=== PATIENT | female | born 1985 | race American Indian/Alaskan Native ===

== ENCOUNTER 2021-11-16 15:19 | Emergency (ER) | payer SELFPAY ==
[2021-11-16 17:56] VITALS: BP 111/73
[2021-11-16] MEDS ORDERED: predniSONE 20 MG TAB PO ONE (21:26)
[2021-11-16] MEDS ORDERED: FAMOTIDINE 20 MG TAB PO ONE (21:26)
[2021-11-16] MEDS ORDERED: diphenhydrAMINE 25 MG CAP PO ONE (21:26)
--- NOTE | 2021-11-16 21:52 | Emergency Department Report ---
ED General Adult HPI - General Chief complaint: Allergic Reaction Stated complaint: ALERGIC REACTION Time Seen by Provider: 11/16/21 21:26 Source: patient Mode of arrival: Ambulatory Limitations: No Limitations - History of Present Illness Initial comments: Patient 36-year-old -Citizen Of [place] female with history of seasonal allergies, no Hodgkin's lymphoma states cancer is in remission. Patient states allergic reaction for the past 3 days itchy runny eyes, there is no shortness of breath there is no nausea no vomiting no dizziness no chest pain no shortness of breath no wheezing or stridor. Patient tolerating p.o. intake. States he came to ED to get prescription medications. Patient denies other symptoms patient appears alert oriented x3 patient appears nontoxic and with no acute distress at this time. Signs are noted stable. There is no rash no hives. Severity scale (0 -10): 0 - Related Data Previous Rx's Medication Instructions Recorded Last Taken Type Famotidine [Pepcid] 20 mg PO BID 7 Days #14 tablet 11/16/21 Unknown Rx Prednisone [predniSONE 10 mg 10 mg PO .TAPER #1 11/16/21 Unknown Rx (6-Day Pack, 21 Tabs)] diphenhydrAMINE [Benadryl CAP] 25 mg PO Q8HR PRN 7 Days #21 11/16/21 Unknown Rx capsule Allergies Allergy/AdvReac Type Severity Reaction Status Date / Time Penicillins Allergy Unknown Verified 11/16/21 21:22 ED Review of Systems ROS: Stated complaint: ALERGIC REACTION Other details as noted in HPI Constitutional: denies: chills, fever Eyes: denies: eye pain, eye discharge, vision change ENT: denies: ear pain, throat pain Respiratory: denies: cough, shortness of breath, wheezing Cardiovascular: denies: chest pain, palpitations Endocrine: no symptoms reported Gastrointestinal: as per HPI. denies: abdominal pain, nausea, vomiting Genitourinary: denies: urgency, dysuria, discharge Musculoskeletal: denies: back pain, joint swelling, arthralgia Skin: pruritus Neurological: denies: headache, weakness, numbness, paresthesias, confusion, vertigo Psychiatric: denies: anxiety, depression Hematological/Lymphatic: denies: easy bleeding, easy bruising ED Past Medical Hx - Past Medical History Previous Medical History?: Yes Hx of Cancer: Yes Additional medical history: lymphoma - Medications Home Medications: Home Medications Medication Instructions Recorded Confirmed Last Taken Type Famotidine [Pepcid] 20 mg PO BID 7 Days #14 tablet 11/16/21 Unknown Rx Prednisone [predniSONE 10 mg 10 mg PO .TAPER #1 11/16/21 Unknown Rx (6-Day Pack, 21 Tabs)] diphenhydrAMINE [Benadryl CAP] 25 mg PO Q8HR PRN 7 Days #21 11/16/21 Unknown Rx capsule ED Physical Exam - General Limitations: No Limitations General appearance: alert, in no apparent distress - Head Head exam: Present: atraumatic, normocephalic - Eye Eye exam: Present: normal appearance, PERRL, EOMI Pupils: Present: normal accommodation - ENT ENT exam: Present: normal orophraynx, mucous membranes dry, mucous membranes moist, TM's normal bilaterally, normal external ear exam - Neck Neck exam: Present: normal inspection, full ROM. Absent: tenderness, lymphadenopathy - Respiratory Respiratory exam: Present: normal lung sounds bilaterally. Absent: respiratory distress, wheezes, stridor - Cardiovascular Cardiovascular Exam: Present: regular rate, normal rhythm, normal heart sounds. Absent: systolic murmur, diastolic murmur, rubs, gallop - GI/Abdominal GI/Abdominal exam: Present: soft. Absent: distended, tenderness - Rectal Rectal exam: Present: deferred - Extremities Exam Extremities exam: Present: normal inspection, full ROM, normal capillary refill. Absent: tenderness - Back Exam Back exam: Present: normal inspection, full ROM. Absent: CVA tenderness (R), CVA tenderness (L) - Neurological Exam Neurological exam: Present: alert, oriented X3 - Psychiatric Psychiatric exam: Present: normal affect, normal mood - Skin Skin exam: Present: warm, dry, intact, normal color, urticaria. Absent: rash, cyanosis, diaphoretic, erythema, petechiae, pallor, ecchymosis ED Course Vital Signs 11/16/21 17:49 Temperature 98.2 F Pulse Rate 99 H Respiratory 16 Rate Blood Pressure 111/73 [Left] O2 Sat by Pulse 100 Oximetry ED Medical Decision Making - Medical Decision Making Patient rates symptoms as mild, airways patent no lesions no exudate no stridor lungs are clear throughout, there is no raised rash no hives, patient advises initial lip swelling is relieved. Patient is tolerating p.o. intake there is no dizziness no lightheadedness no nausea no vomiting no chest pain or shortness of breath plan DC to home, short burst steroids, Benadryl Pepcid, follow-up with primary care doctor in 2 to 3 days return to emergency department immediately should symptoms worsen. Patient verbalized agreement and understanding with discharge plan. Patient DC'd home in stable condition at this time. Critical care attestation.: If time is entered above; I have spent that time in minutes in the direct care of this critically ill patient, excluding procedure time. ED Disposition Clinical Impression: Allergic reaction Qualifiers: Encounter type: initial encounter Qualified Code(s): T78.40XA - Allergy, unspecified, initial encounter Allergies Qualifiers: Encounter type: initial encounter Qualified Code(s): T78.40XA - Allergy, unspecified, initial encounter Disposition: HOME / SELF CARE / HOMELESS Is pt being admited?: No Does the pt Need Aspirin: No Condition: Stable Instructions: Allergies, Adult, [id number], Allergies, Adult Additional Instructions: Medication as prescribed, follow-up with your doctor in 2 to 3 days. Return to emergency immediately should symptoms worsen or shortness of breath. Prescriptions: diphenhydrAMINE [Benadryl CAP] 25 mg PO Q8HR PRN 7 Days #21 capsule PRN Reason: allergies Famotidine [Pepcid] 20 mg PO BID 7 Days #14 tablet Prednisone [predniSONE 10 mg (6-Day Pack, 21 Tabs)] 10 mg PO .TAPER #1 Referrals: RUTH DONALD MD [Staff Physician] - 3-5 Days Forms: Work/School Release Form(ED) Time of Disposition: 21:52
== END 2021-11-16 22:09 | disposition home or self-care (01) ==
LOC: ED 15:19
DX: T78.40XA Allergy, unspecified, initial encounter (principal); Z98.890 Other specified postprocedural states; Z88.0 Allergy status to penicillin
CPT/HCPCS: 99282